=== PATIENT | female | born 1950 | race Caucasian/White ===

== ENCOUNTER 2025-03-22 06:52 | Day surgery (SDC) | payer MEDICARE ==
[2025-03-22] MEDS ORDERED: Propofol 200 MG/20 ML SDV ONE (07:01)
[2025-03-22] MEDS ORDERED: fentaNYL 50 MCG/ML SDV ONE (07:01)
[2025-03-22] MEDS: Lactated Ringers 1,000 ML IV SCH (07:54)
== END 2025-03-22 09:51 | disposition home or self-care (01) ==
LOC: JP.SDS 06:52
PROVIDERS: ATTEND Surgery
DX: Z12.11 Encounter for screening for malignant neoplasm of colon (principal)
CPT/HCPCS: 00812; 45378; J2704; J3010; J7120